=== PATIENT | female | born 1965 | race Two or more races ===

== ENCOUNTER 2018-09-17 00:27 | Inpatient (IN) | payer MEDICAID ==
[~2018-09-17] VITALS: Ht 157.5 cm; Wt 75.0 kg
[2018-09-17] VITALS (7 sets, daily range): BP systolic 102–144; BP diastolic 54–83; BMI 30.2
[2018-09-17 00:58] LABS: APPEARANCE CLOUDY (CLEAR); BILIRUBIN NEGATIVE (NEGATIVE); COLOR YELLOW (YELLOW); GLUCOSE 100 mg/dL (NEGATIVE); KETONE NEGATIVE (NEGATIVE); NITRITE NEGATIVE (NEGATIVE); PROTEIN TRACE mg/dL (NEGATIVE); RED CELLS - URINE 0-5 /hpf (0-5); UROBILINOGEN NORMAL (NORMAL); WHITE CELLS - URINE >50 /hpf (0-5)
[2018-09-17 00:59] LABS: BACTERIA MANY /hpf (NONE SEEN); EPITHELIAL CELLS 0-5 /hpf (0-5)
[2018-09-17 01:04] LABS: BASOPHILS 0.2 % (0-2); EOSINOPHILS 0.7 % (0-7); HEMATOCRIT 35.6 % (36.0-48.0); HEMOGLOBIN 12.6 g/dL (12-16); IMMATURE GRANULOCYTES 0.3 % (0-5); LYMPHOCYTES 15.3 % (15-50); MCH 32.3 pg (26.0-34.0); MCHC 35.4 g/dL (31.0-37.0); MCV 91.3 fL (80.0-100.0); MEAN PLATELET VOLUME 9.9 fL (7.4-10.4); MONOCYTES 7.8 % (2-11); NEUTROPHILS 75.7 % (40-80); PLATELET COUNT 294 10x3/uL (130-400); RDW 12.5 % (11.5-14.5); WBC 15.9 10x3/uL (4.8-10.8)
[2018-09-17 01:24] LABS: ALBUMIN 2.8 g/dL (3.4-5.0); ALKALINE PHOSPHATASE 153 U/L (46-116); ALT (SGPT) 16 U/L (10-68); BILIRUBIN - TOTAL 0.32 mg/dL (0.2-1.3); CALCIUM 8.4 mg/dL (8.5-10.1); CARBON DIOXIDE 23.4 mmol/L (21.0-32.0); CHLORIDE - SERUM 98 mmol/L (98-107); CREATININE - SERUM 1.1 mg/dL (0.6-1.3); POTASSIUM - SERUM 4.1 mmol/L (3.5-5.1); PROTEIN - SERUM 7.9 g/dL (6.4-8.2); SODIUM 134 mmol/L (136-145); UREA NITROGEN 15 mg/dL (7-18); eGFR NON AFRICAN AMERICAN 55 mL/min (90-120)
[2018-09-17 01:27] LABS: CALC OSMOLALITY 282 mosm/kg (275-300); GLUCOSE 354 mg/dL (74-106); TROPONIN-I < 0.017 ng/mL (0.000-0.060)
--- NOTE | 2018-09-17 01:58 | NUR ---
PT GIVEN WARM BLANKETS.
--- NOTE | 2018-09-17 02:49 | NUR ---
PT AMBULATED TO RESTROOM INDEPENDENTLY.
--- NOTE | 2018-09-17 03:17 | NUR ---
PT GIVEN CRACKERS AND ICE WATER.
[2018-09-17] MEDS ORDERED: GLUCOPHAGE1000 MG PO (04:33)
[2018-09-17] MEDS ORDERED: TRIUMEQ TABLET1 EACH PO (04:34)
[2018-09-17] MEDS ORDERED: DOXYCYCLINE HY100 M2 PO (04:34)
--- NOTE | 2018-09-17 04:40 | NUR ---
PT ARRIVED ON UNIT VIA WHEELCHAIR ESCORTED BY ER NURSE. CONTINUED IV FLUIDS FROM ER. ORIENTED PT TO ROOM AND CALL LIGHT. SIDE RAILS UP X2 FOR SAFETY.
--- NOTE | 2018-09-17 05:07 | NUR ---
ADMISSION ASSESSMENT AND HISTORY COMPLETE.
--- NOTE | 2018-09-17 08:33 | NUR ---
SITTING UP RIGHT IN BED, EVEN UNLABORED BREATHING, AMBULATORY, IV IN RIGHT FOREARM, PATENT INFUSING NS, ON ROOM AIR, DENIES ANY CURRENT NEEDS OR DISCOMFORTS, BED LOWERED AND LOCKED, CALL LIGHT WITHIN REACH. CPOC
--- NOTE | 2018-09-17 22:18 | NUR ---
PT ALERT & ORIENTED. C/O BURNING UPON URINATION. GAVE SCHEDULED MEDS. MONISTAT SUPPOSITORIES AT BEDSIDE. PT WISHES TO ADMINISTER HERSELF. INSTRUCTED ON USE. PT VERBALIZED UNDERSTANDING. NO OTHER NEEDS. ASSESSMENT PER FLOW-SHEET.
[2018-09-18 04:47] VITALS: BP 134/76
[2018-09-18 07:02] LABS: BASOPHILS 0.5 % (0-2); EOSINOPHILS 2.2 % (0-7); HEMATOCRIT 29.4 % (36.0-48.0); IMMATURE GRANULOCYTES 0.4 % (0-5); LYMPHOCYTES 26.7 % (15-50); MCH 31.6 pg (26.0-34.0); MEAN PLATELET VOLUME 10.3 fL (7.4-10.4); MONOCYTES 7.3 % (2-11); NEUTROPHILS 62.9 % (40-80); PLATELET COUNT 257 10x3/uL (130-400); RBC 3.16 10x6/uL (4.00-5.40); RDW 12.6 % (11.5-14.5); WBC 7.9 10x3/uL (4.8-10.8)
[2018-09-18 07:08] LABS: ALBUMIN 2.3 g/dL (3.4-5.0); ALKALINE PHOSPHATASE 119 U/L (46-116); ALT (SGPT) 20 U/L (10-68); BILIRUBIN - TOTAL 0.15 mg/dL (0.2-1.3); CARBON DIOXIDE 21.8 mmol/L (21.0-32.0); CHLORIDE - SERUM 106 mmol/L (98-107); PROTEIN - SERUM 6.5 g/dL (6.4-8.2); SODIUM 139 mmol/L (136-145); eGFR NON AFRICAN AMERICAN 79 mL/min (90-120)
[2018-09-18 07:09] LABS: CALC OSMOLALITY 283 mosm/kg (275-300); CREATININE - SERUM 0.8 mg/dL (0.6-1.3); GLUCOSE 218 mg/dL (74-106); UREA NITROGEN 11 mg/dL (7-18)
--- NOTE | 2018-09-18 08:54 | NUR ---
SITTING UP RIGHT IN BED, AWAKE AND ALERT, DISORIENTED X4. VERBALIZED DECREASE IN IRRATATION OF PERINEAL AREA, ON ROOM AIR IV IN RIGHT FOREARM, PATENT, IV INFUSING NS, DENIES ANY DISCOMFORT, BED LOWERED AND LOCKED, CALL LIGHT WITHIN REACH. CPOC
[2018-09-18 09:40] VITALS: BP 132/76
--- NOTE | 2018-09-18 12:23 | NUR ---
AMBULATORY, WALKING AROUND UNIT, NON-SLIP SOCKS ON, IV STILL INFUSING IN RIGHT FOREARM, DENIES ANY CURRENT NEEDS OR DISCOMFORTS, BED LOWERED AND LOCKED, CALL LIGHT WITHIN REACH. CPOC
[2018-09-18 14:15] VITALS: BP 160/82
[2018-09-18 18:54] VITALS: BP 148/85
--- NOTE | 2018-09-18 19:14 | NUR ---
EYES CLOSED, EVEN UNLABORED BREATHING, IV IN RIGHT FOREARM, PATENT, INFUSING FLUIDS, ON ROOM AIR, DENIES ANY CURRENT NEEDS BED LOWERED AND LOCKED, CALL LIGHT WITHIN REACH. CPOC
--- NOTE | 2018-09-18 19:41 | NUR ---
PT RESTING QUIETLY
[2018-09-18 20:00] VITALS: BP 153/76
--- NOTE | 2018-09-18 22:38 | NUR ---
FSBS 206 - GAVE INSULIN PER SS. PT USED NIGHTLY MONOSTAT. NO OTHER NEEDS. ASSESSMENT COMPLETE PER FLOW-SHEET. WILL CONTINUE TO MONITOR.
[2018-09-19] VITALS: BP 148/83
[2018-09-19 04:00] VITALS: BP 153/76
[2018-09-19 04:16] LABS: BASOPHILS 0.4 % (0-2); EOSINOPHILS 2.9 % (0-7); HEMATOCRIT 29.1 % (36.0-48.0); IMMATURE GRANULOCYTES 0.4 % (0-5); MCH 31.6 pg (26.0-34.0); MCHC 34.4 g/dL (31.0-37.0); MCV 92.1 fL (80.0-100.0); MEAN PLATELET VOLUME 9.8 fL (7.4-10.4); MONOCYTES 6.8 % (2-11); NEUTROPHILS 62.5 % (40-80); PLATELET COUNT 271 10x3/uL (130-400); RBC 3.16 10x6/uL (4.00-5.40); RDW 12.5 % (11.5-14.5)
[2018-09-19 04:34] LABS: ALBUMIN 2.3 g/dL (3.4-5.0); ALKALINE PHOSPHATASE 133 U/L (46-116); CALCIUM 8.2 mg/dL (8.5-10.1); CARBON DIOXIDE 20.9 mmol/L (21.0-32.0); CHLORIDE - SERUM 106 mmol/L (98-107); CREATININE - SERUM 0.8 mg/dL (0.6-1.3); POTASSIUM - SERUM 3.9 mmol/L (3.5-5.1); PROTEIN - SERUM 6.7 g/dL (6.4-8.2); SODIUM 140 mmol/L (136-145); UREA NITROGEN 10 mg/dL (7-18); eGFR NON AFRICAN AMERICAN 79 mL/min (90-120)
[2018-09-19 04:36] LABS: ALT (SGPT) 31 U/L (10-68); BILIRUBIN - TOTAL 0.09 mg/dL (0.2-1.3); CALC OSMOLALITY 279 mosm/kg (275-300); GLUCOSE 142 mg/dL (74-106)
[2018-09-19 08:44] VITALS: BP 152/89
[2018-09-19] MEDS ORDERED: DIFLUCAN200 MG PO (11:59)
--- NOTE | 2018-09-19 12:00 | NUR ---
SPOKE TO DR SAENZ. PT MAY BE DC HOME, FLUCANOZOLE 200MG DAILY FOR 7 DAYS STOP OTHER ABX AND FOLLOW UP SCHEDULED
[2018-09-19] MEDS ORDERED: PATIENT'S OWN MEDICA PO (12:29)
[2018-09-19 13:16] VITALS: BP 157/90
[2018-09-19 14:58] VITALS: Ht 157.5 cm; Wt 75.0 kg
== END 2018-09-19 14:29 | disposition home or self-care (01) | DRG 977 ==
LOC: D.ER 00:27 → D.MS 03:11 → D.EDHOLD 03:11 → D.MS 04:13
PROVIDERS: Family Medicine; ADMIT Family Medicine
DX: B20 Human immunodeficiency virus [HIV] disease (principal); N39.0 Urinary tract infection, site not specified; B37.3 Candidiasis of vulva and vagina; E11.9 Type 2 diabetes mellitus without complications; E86.0 Dehydration; E11.65 Type 2 diabetes mellitus with hyperglycemia; E03.9 Hypothyroidism, unspecified; D64.9 Anemia, unspecified